=== PATIENT | male | born 1990 | race American Indian/Alaskan Native ===

== ENCOUNTER 2022-08-27 23:45 | Emergency (ER) | payer SELFPAY ==
[2022-08-28] MEDS ORDERED: Lidocaine 1% 30 ML SDV INJECT ONE (00:06)
== END 2022-08-28 00:57 | disposition home or self-care (01) ==
LOC: VM.ED 23:45
DX: S61.213A Laceration without foreign body of left middle finger without damage to nail, initial encounter (principal); W26.8XXA Contact with other sharp object(s), not elsewhere classified, initial encounter
CPT/HCPCS: 12002; 99282